=== PATIENT | female | born 1950 | race Caucasian/White ===

== ENCOUNTER 2022-07-04 01:00 | Emergency (ER) | payer MEDICARE, MEDICAID, SELFPAY ==
--- NOTE | ~2022-07-04 | CT_ITS ---
EXAMINATION: CT ABDOMEN AND PELVIS WITHOUT CONTRAST CLINICAL INFORMATION: Pain with hematuria COMPARISON: 06/29/2014 TECHNIQUE: Multidetector volumetric imaging was performed from the superior aspect of the liver through the pubic symphysis. Sagittal and coronal reformatted images were obtained on the technologist's workstation. This CT examination was performed using dose optimization techniques as appropriate, variously including the following: *Automated exposure control *Adjustment of mA and/or kV according to patient size (this includes techniques or standardized protocols for targeted exams where dose is matched to indication/reason for exam; i.e. extremities or head) *Use of iterative reconstruction technique DLP: 562 mGy-cm FINDINGS: LUNG BASES: The visualized lung bases are unremarkable. LIVER, GALLBLADDER, AND BILIARY TREE: The liver is normal in size, shape, and attenuation. No focal hepatic lesion or biliary ductal dilatation is identified. The gallbladder is unremarkable with no evidence of radiopaque gallstones, gallbladder wall thickening, or obvious pericholecystic inflammatory changes. PANCREAS: Unremarkable. SPLEEN: Unremarkable. ADRENAL GLANDS: Unremarkable. KIDNEYS AND URETERS: There is mild right hydronephrosis without obstructing calculus. A few small hypodensities are noted bilaterally favoring cysts; no follow-up recommended. There is cortical scarring of the upper left kidney. Nonspecific mild bilateral perinephric stranding. BLADDER: Partially distended. There is hyperdensity in the posterior bladder dependently measuring 2.2 x 0.9 cm on axial image 68/83. GASTROINTESTINAL TRACT: There is colonic diverticulosis without convincing diverticulitis. No evidence of bowel obstruction. No significant bowel wall thickening is seen. Appendix appears nondilated. Trace pelvic free fluid. No free air is seen. ABDOMINAL WALL: No significant hernia is appreciated. LYMPH NODES: Normal. VASCULAR: There is atherosclerotic calcification along the aorta and iliac arteries. PELVIC VISCERA: Small fibroid noted. OSSEOUS STRUCTURES: Degenerative changes in the spine. There is chronic appearing severe compression deformity of L1 with retropulsion and narrowing of the central canal to approximately 9 mm at this level. Partial compression deformity of L2 is also noted. CT/CT abdomen pelvis wo IV con IMPRESSION: 1. Small amount of hyperdensity in the dependent urinary bladder which may reflect blood products in the setting of hematuria. However, a bladder wall mass cannot be excluded, and further workup with bladder ultrasound is recommended. 2. Mild right hydronephrosis without obstructing calculus. 3. Trace nonspecific pelvic free fluid. 4. Chronic appearing compression deformities of L1 and L2, with moderate narrowing of the central canal at L1.
[2022-07-04 01:07] VITALS: BP 164/86; BP 173/77; PULSE 102; PULSE 106; RESP 20; TEMP 36.6; O2SAT 94; O2SAT 96; BMI 31.2
[2022-07-04 01:14] VITALS: BP 159/74
--- NOTE | 2022-07-04 01:23 | ED_ITS ---
HPI - Female Genitourinary General Chief complaint: Vaginal Bleeding Stated complaint: VAGINAL BLEEDING Time Seen by Provider: 07/04/22 01:23 Source: patient Mode of arrival: ambulatory Limitations: no limitations History of Present Illness HPI Narrative: Patient with hx of hypertension cervical cancer no history of kidney stone came to the ER for dysuria frequency and just prior to arrival having some blood in the urine no fever no chills Related Data Allergies Allergy/AdvReac Type Severity Reaction Status Date / Time No Known Allergies Allergy Unverified 06/08/20 18:21 Review of Systems Review of Systems: Yes all other systems are reviewed and are negative FORMERLY [facility] Social History Social History Advance Directives: No Physical Exam Vital Signs: Vital Signs: Last Vital Signs Temp 97.9 F 07/04/22 01:28 Pulse 71 07/04/22 02:23 Resp 18 07/04/22 02:23 BP 129/76 07/04/22 02:23 Pulse Ox 96 07/04/22 02:23 O2 Del Method 07/04/22 02:23 BMI result Body Mass Index 31.2 Appearance: Alert. Oriented X3. No acute distress. Eyes: PERRLA, No Nystagmus ENT: Pharynx normal. Oral Mucosa moist Neck: Normal inspection. Neck supple. CVS: Normal heart rate and rhythm. Pulses normal. Respiratory: No respiratory distress. Equal air entry bilateral, no wheezing/rales/rhonchi Abdomen: Soft and nontender. Bowel sounds are present, no mass palpable, no CVA tenderness Skin: Skin warm and dry. Normal skin color. Normal skin turgor. Extremities: No lower extremity edema. No calf tenderness Neuro: Oriented X 3. t MDM - Female Genitourinary MDM Narrative Medical decision making narrative: Patient with harsha hematuria with CT scan showing hyperdense showed in bladder possible blood versus mass patient advised to follow with urologist Lab Data Attestation: I reviewed the patient's lab results. Result diagrams: 07/04/22 02:53 07/04/22 02:53 Labs: Lab Results 07/04/22 07/04/22 07/04/22 Range/Units 01:47 02:53 02:53 WBC 8.8 (4.8-10.8) X10*3/uL RBC 3.61 L (4.20-5.50) X10*6/uL Hgb 10.9 L (12.0-16.0) g/dl Hct 31.5 L (37.0-47.0) % MCV 87.3 (80.0-98.0) fL MCH 30.2 (27.0-33.0) pg MCHC 34.6 (31.0-35.0) g/dl RDW 13.0 (11.0-16.0) % Plt Count 283 (160-400) X10*3/uL MPV 8.3 L (9.4-12.3) fL Immature Gran % (Auto) 0.2 (0.0-0.4) % Neut % (Auto) 80.3 H (45-73) % Lymph % (Auto) 12.3 L (20-40) % Bradley % (Auto) 6.1 (2-11) % Eos % (Auto) 0.3 (0-4) % Baso % (Auto) 0.8 (0-2) % Lymph # (Auto) 1.1 L (1.2-4.9) X10*3/uL Bradley # (Auto) 0.5 (0.1-1.2) X10*3/uL Eos # (Auto) 0.0 (0.0-0.4) X10*3/uL Baso # (Auto) 0.1 (0.0-0.2) X10*3/uL Abs Immat Gran (auto) 0.02 (0.00-0.03) X10*3/uL Absolute Neuts (auto) 7.1 (2.0-8.3) x10*3/uL Absolute Nucleated RBC 0.000 (0.0-0.012) X10*3/uL Nucleated RBC % (auto) 0.0 (0.0-0.2) /100WBC PT 11.3 (10.0-13.1) SEC INR 1.0 (0.9-1.1) Sodium (135-145) mmol/L Potassium (3.3-5.1) mmol/L Chloride (96-108) mmol/L Carbon Dioxide (22-29) mmol/L Anion Gap (12-20) BUN (9-16) mg/dL Creatinine (0.5-1.4) mg/dL Estim Creat Clear Calc Estimated GFR Random Glucose (60-115) mg/dL Calcium (8.4-10.2) mg/dL Total Bilirubin (0.0-1.0) mg/dL AST (5-31) U/L ALT (0-31) U/L Alkaline Phosphatase (39-117) U/L Total Protein (6.5-8.0) g/dL Albumin (3.5-5.0) g/dL Urine Color Dark Yellow Urine Appearance Cloudy Urine pH 6.5 (5.0-9.0) Ur Specific [place] 1.015 (1.005-1.025) Urine Protein 100 (2+) H (Neg-Trace) mg/dL Urine Glucose (UA) Negative (Negative) mg/dL Urine Ketones Negative (Negative) mg/dL Urine Blood Large (3+) H (Negative) Urine Nitrite Negative (Negative) Ur Leukocyte Esterase Trace H (Negative) Urine RBC >20 H (0-2) /HPF Urine WBC 0-5 (0-5) /HPF Ur Squamous Epith Cells 0-2 (0-2) /HPF Urine Bacteria None Seen (None Seen) Hyaline Casts 0-2 (0-2) /LPF 07/04/22 Range/Units 02:53 WBC (4.8-10.8) X10*3/uL RBC (4.20-5.50) X10*6/uL Hgb (12.0-16.0) g/dl Hct (37.0-47.0) % MCV (80.0-98.0) fL MCH (27.0-33.0) pg MCHC (31.0-35.0) g/dl RDW (11.0-16.0) % Plt Count (160-400) X10*3/uL MPV (9.4-12.3) fL Immature Gran % (Auto) (0.0-0.4) % Neut % (Auto) (45-73) % Lymph % (Auto) (20-40) % Bradley % (Auto) (2-11) % Eos % (Auto) (0-4) % Baso % (Auto) (0-2) % Lymph # (Auto) (1.2-4.9) X10*3/uL Bradley # (Auto) (0.1-1.2) X10*3/uL Eos # (Auto) (0.0-0.4) X10*3/uL Baso # (Auto) (0.0-0.2) X10*3/uL Abs Immat Gran (auto) (0.00-0.03) X10*3/uL Absolute Neuts (auto) (2.0-8.3) x10*3/uL Absolute Nucleated RBC (0.0-0.012) X10*3/uL Nucleated RBC % (auto) (0.0-0.2) /100WBC PT (10.0-13.1) SEC INR (0.9-1.1) Sodium 136 (135-145) mmol/L Potassium 4.4 (3.3-5.1) mmol/L Chloride 103 (96-108) mmol/L Carbon Dioxide 21 L (22-29) mmol/L Anion Gap 16 (12-20) BUN 19 H (9-16) mg/dL Creatinine 0.82 (0.5-1.4) mg/dL Estim Creat Clear Calc 58.0 Estimated GFR > 60 Random Glucose 146 H (60-115) mg/dL Calcium 9.2 (8.4-10.2) mg/dL Total Bilirubin 0.3 (0.0-1.0) mg/dL AST 18 (5-31) U/L ALT 14 (0-31) U/L Alkaline Phosphatase 64 (39-117) U/L Total Protein 7.9 (6.5-8.0) g/dL Albumin 4.0 (3.5-5.0) g/dL Urine Color Urine Appearance Urine pH (5.0-9.0) Ur Specific [place] (1.005-1.025) Urine Protein (Neg-Trace) mg/dL Urine Glucose (UA) (Negative) mg/dL Urine Ketones (Negative) mg/dL Urine Blood (Negative) Urine Nitrite (Negative) Ur Leukocyte Esterase (Negative) Urine RBC (0-2) /HPF Urine WBC (0-5) /HPF Ur Squamous Epith Cells (0-2) /HPF Urine Bacteria (None Seen) Hyaline Casts (0-2) /LPF Discharge Plan Discharge Clinical Impression: Harsha hematuria Patient Disposition: Home, Self-Care Instructions: Hematuria (ED) Additional Instructions: Drink plenty of fluids Follow-up with urologist you might have a growth inside the bladder which need further evaluate Interventions: ED Discharge Assessment Last Done: 07/04/22 04:26 Discharge Date/Time: 07/04/22 04:27
[2022-07-04 01:28] VITALS: BP 123/61; PULSE 72; RESP 16; TEMP 36.6; O2SAT 98
[2022-07-04 02:02] LABS: Appearance Urine Cloudy; Color Urine Dark Yellow; Glucose Urine UA Negative (Negative); Leukocyte Esterase Urine Trace (Negative); Nitrite Urine Negative (Negative); PH 6.5 (5.0-9.0); Specific Gravity - Urine 1.015 (1.005-1.025); UMIC TRIGGER UACC YES; Urine Blood Large (3+) (Negative); Urine Ketones Negative (Negative); Urine Protein 100 (2+) mg/dL (Neg-Trace)
[2022-07-04 02:10] LABS: Bacteria Urine None Seen (None Seen); Hyaline Casts Urine 0-2 /LPF (0-2); RBC Urine >20 /HPF (0-2); Squamous Epithelial Cell Urine 0-2 /HPF (0-2); WBC Urine 0-5 /HPF (0-5)
[2022-07-04 02:23] VITALS: BP 129/76; PULSE 71; RESP 18; O2SAT 96
[2022-07-04 02:57] LABS: Basophils Absolute Auto 0.1 X10*3/uL (0.0-0.2); Basophils Percent Auto 0.8 % (0-2); Eosinophils Percent Auto 0.3 % (0-4); Hematocrit 31.5 % (37.0-47.0); Hemoglobin 10.9 g/dl (12.0-16.0); Imm Gran Abs Auto 0.02 X10*3/uL (0.00-0.03); Imm Gran Pct Auto 0.2 % (0.0-0.4); Lymphocytes Absolute Auto 1.1 X10*3/uL (1.2-4.9); Lymphocytes Percent Auto 12.3 % (20-40); MANUAL DIFF FLAG NO; Mean Corpuscular HGB Conc 34.6 g/dl (31.0-35.0); Mean Corpuscular Hemoglobin 30.2 pg (27.0-33.0); Mean Corpuscular Volume 87.3 fL (80.0-98.0); Mean Platelet Volume 8.3 fL (9.4-12.3); Monocytes Absolute Auto 0.5 X10*3/uL (0.1-1.2); Monocytes Percent Auto 6.1 % (2-11); Neutrophils Absolute Auto 7.1 x10*3/uL (2.0-8.3); Neutrophils Percent Auto 80.3 % (45-73); Platelet Count 283 X10*3/uL (160-400); Red Blood Count 3.61 X10*6/uL (4.20-5.50); White Blood Count 8.8 X10*3/uL (4.8-10.8)
[2022-07-04 03:03] LABS: Prothrombin Time 11.3 SEC (10.0-13.1)
[2022-07-04 03:16] LABS: Alanine Aminotransferase 14 U/L (0-31); Alkaline Phosphatase 64 U/L (39-117); Anion Gap 16 (12-20); Aspartate Amino Transferase 18 U/L (5-31); Bilirubin Total 0.3 mg/dL (0.0-1.0); Blood Urea Nitrogen 19 mg/dL (9-16); Calcium 9.2 mg/dL (8.4-10.2); Carbon Dioxide 21 mmol/L (22-29); Chloride 103 mmol/L (96-108); Estimated Glomerular Filt Rate > 60; Glucose Random 146 mg/dL (60-115); Potassium 4.4 mmol/L (3.3-5.1); Sodium 136 mmol/L (135-145); Total Protein 7.9 g/dL (6.5-8.0)
== END 2022-07-04 04:27 | disposition home or self-care (01) ==
PROVIDERS: Emergency Provider Internal Medicine; PCP Student in an Organized Health Care Education/Training Program
DX: R31.9 Hematuria, unspecified (principal); R30.0 Dysuria; R35.0 Frequency of micturition; I10 Essential (primary) hypertension; Z85.41 Personal history of malignant neoplasm of cervix uteri
CPT/HCPCS: 36415; 74176; 80053; 81001; 81003; 85025; 85610; 99283; 99284

== ENCOUNTER 2022-07-30 13:49 | Outpatient (REF) | payer MEDICARE, MEDICAID, SELFPAY | END 2022-07-30 13:50 | disposition home or self-care (01) | LOC: HO.HMGCX 13:49 | PROVIDERS: PCP Student in an Organized Health Care Education/Training Program; Visit Provider Student in an Organized Health Care Education/Training Program | DX: Z13.89 Encounter for screening for other disorder (principal) ==

== ENCOUNTER 2022-08-02 09:09 | Outpatient (REF) | payer MEDICARE, MEDICAID, SELFPAY ==
--- NOTE | ~2022-08-02 | US_ITS ---
EXAMINATION: US PELVIS LIMITED (BLADDER) CLINICAL INFORMATION: Gross hematuria. COMPARISON: CT abdomen and pelvis 07/04/2022. Renal ultrasound 04/05/2012 and 03/04/2012. TECHNIQUE: Real-time imaging of the bladder. FINDINGS: BLADDER: Well distended and normal. No mass or wall thickening is appreciated. Abnormal soft tissue seen in the bladder measuring 2.2 x 0.[address] is not appreciated by ultrasound. Bilateral ureteral jets are demonstrated. Prevoid bladder volume is 189 mL. Postvoid bladder volume is 18.7 mL. US/US bladder IMPRESSION: No mass or abnormal wall thickening appreciated by ultrasound.
== END 2022-08-02 09:10 | disposition home or self-care (01) ==
LOC: HO.HMGCX 09:09
PROVIDERS: PCP Student in an Organized Health Care Education/Training Program; Visit Provider Student in an Organized Health Care Education/Training Program
DX: R31.0 Gross hematuria (principal)
CPT/HCPCS: 76857

== ENCOUNTER 2023-01-14 09:03 | Outpatient (REF) | payer MEDICARE, MEDICAID, SELFPAY ==
[2023-01-14 10:09] LABS: Anion Gap 13 (12-20); Blood Urea Nitrogen 17 mg/dL (9-16); Calcium 9.2 mg/dL (8.4-10.2); Carbon Dioxide 26 mmol/L (22-29); Chloride 106 mmol/L (96-108); Estimated Glomerular Filt Rate > 60; Potassium 4.4 mmol/L (3.3-5.1); Sodium 141 mmol/L (135-145)
[2023-01-14 11:29] LABS: Protein/Creatinine Ratio, Ur 0.65 (<0.2); Total Protein Urine Random 199 mg/dL (<12)
== END 2023-01-14 09:04 | disposition home or self-care (01) ==
LOC: HO.LAB 09:03
PROVIDERS: PCP Student in an Organized Health Care Education/Training Program; Visit Provider Internal Medicine Nephrology
DX: I12.9 Hypertensive chronic kidney disease with stage 1 through stage 4 chronic kidney disease, or unspecified chronic kidney disease (principal); N18.2 Chronic kidney disease, stage 2 (mild)
CPT/HCPCS: 36415; 80051; 82310; 82565; 84156; 84520

== ENCOUNTER 2024-01-21 09:09 | Outpatient (REF) | payer MEDICARE, MEDICAID, SELFPAY ==
[2024-01-21 15:04] LABS: Creatinine Urine 223.88 mg/dL; Protein/Creatinine Ratio, Ur 0.19 (<0.2); Total Protein Urine Random 42 mg/dL (<12)
[2024-01-21 15:25] LABS: Anion Gap 13 (12-20); Blood Urea Nitrogen 22 mg/dL (9-16); Carbon Dioxide 23 mmol/L (22-29); Chloride 108 mmol/L (96-108); Estimated Glomerular Filt Rate > 60; Sodium 140 mmol/L (135-145)
[2024-01-21 15:33] LABS: Vitamin D 25-OH Total 47.3 ng/mL (>30)
[2024-01-21 15:35] LABS: Parathyroid Hormone Intact 96.2 pg/mL (8.7-77.1)
== END 2024-01-21 09:10 | disposition home or self-care (01) ==
LOC: HO.CHCLDS 09:09
PROVIDERS: Visit Provider Internal Medicine Nephrology
DX: N18.2 Chronic kidney disease, stage 2 (mild) (principal); I12.9 Hypertensive chronic kidney disease with stage 1 through stage 4 chronic kidney disease, or unspecified chronic kidney disease; R80.8 Other proteinuria
CPT/HCPCS: 36415; 80051; 82306; 82310; 82565; 82570; 83970; 84156; 84520

== ENCOUNTER 2024-02-10 13:28 | Outpatient (REF) | payer MEDICARE, MEDICAID, SELFPAY ==
[2024-02-10 14:41] LABS: Hematocrit 30.5 % (37.0-47.0); Hemoglobin 10.3 g/dl (12.0-16.0); Mean Corpuscular HGB Conc 33.8 g/dl (31.0-35.0); Mean Corpuscular Hemoglobin 29.8 pg (27.0-33.0); Mean Corpuscular Volume 88.2 fL (80.0-98.0); Mean Platelet Volume 8.8 fL (9.4-12.3); Platelet Count 311 X10*3/uL (160-400); Red Blood Count 3.46 X10*6/uL (4.20-5.50); Red Cell Distribution Width 13.3 % (11.0-16.0); White Blood Count 6.7 X10*3/uL (4.8-10.8)
== END 2024-02-10 13:29 | disposition home or self-care (01) ==
LOC: HO.CHCLDS 13:28
PROVIDERS: Visit Provider Internal Medicine Nephrology
DX: D64.9 Anemia, unspecified (principal)
CPT/HCPCS: 36415; 85027

== ENCOUNTER 2024-07-01 09:22 | Outpatient (REF) | payer MEDICARE, MEDICAID, SELFPAY ==
[2024-07-01 14:10] LABS: Hematocrit 30.5 % (37.0-47.0); Hemoglobin 10.2 g/dl (12.0-16.0); Mean Corpuscular HGB Conc 33.4 g/dl (31.0-35.0); Mean Corpuscular Hemoglobin 29.5 pg (27.0-33.0); Mean Corpuscular Volume 88.2 fL (80.0-98.0); Mean Platelet Volume 8.8 fL (9.4-12.3); Platelet Count 280 X10*3/uL (160-400); Red Blood Count 3.46 X10*6/uL (4.20-5.50); Red Cell Distribution Width 13.6 % (11.0-16.0); White Blood Count 4.2 X10*3/uL (4.8-10.8)
[2024-07-01 14:24] LABS: Estimated Average Glucose 108 mg/dL; Hemoglobin A1C 94.2718 umol/L; Hemoglobin A1c % 5.4 % (<6.0); Total Hemoglobin (HGBA1C) 2656.5277 umol/L
[2024-07-01 14:29] LABS: Alanine Aminotransferase 14 U/L (0-31); Albumin Level 3.8 g/dL (3.5-5.0); Alkaline Phosphatase 70 U/L (39-117); Anion Gap 11 (12-20); Aspartate Amino Transferase 16 U/L (5-31); Bilirubin Direct 0.1 mg/dL (0.0-0.5); Bilirubin Total 0.3 mg/dL (0.0-1.0); Blood Urea Nitrogen 19 mg/dL (9-16); Calcium 9.3 mg/dL (8.4-10.2); Carbon Dioxide 26 mmol/L (22-29); Chloride 108 mmol/L (96-108); Cholesterol 215 mg/dL (<200); Estimated Glomerular Filt Rate > 60; Glucose Random 106 mg/dL (60-115); HDL Cholesterol 52 mg/dL (>40); LDL Cholesterol Calculated 134 mg/dL (<100); Sodium 141 mmol/L (135-145); Total Protein 7.5 g/dL (6.5-8.0); Triglycerides 147 mg/dL (<150)
[2024-07-01 14:32] LABS: Creatinine Urine 127.24 mg/dL; Microalbum/Creatinine Ratio Ur 351.3 ug/mg cr (<30)
[2024-07-01 14:38] LABS: Anion Gap 10 (12-20); Blood Urea Nitrogen 18 mg/dL (9-16); Calcium 9.4 mg/dL (8.4-10.2); Carbon Dioxide 27 mmol/L (22-29); Chloride 107 mmol/L (96-108); Estimated Glomerular Filt Rate > 60; Potassium 4.1 mmol/L (3.3-5.1); Sodium 140 mmol/L (135-145)
[2024-07-01 14:43] LABS: Parathyroid Hormone Intact 58.8 pg/mL (8.7-77.1)
[2024-07-01 14:57] LABS: Vitamin D 25-OH Total 54.9 ng/mL (>30)
== END 2024-07-01 09:23 | disposition home or self-care (01) ==
LOC: HO.CHCLDS 09:22
PROVIDERS: Referring Provider Internal Medicine Nephrology; Visit Provider Student in an Organized Health Care Education/Training Program
DX: I12.9 Hypertensive chronic kidney disease with stage 1 through stage 4 chronic kidney disease, or unspecified chronic kidney disease (principal); E11.22 Type 2 diabetes mellitus with diabetic chronic kidney disease; D63.1 Anemia in chronic kidney disease; R80.8 Other proteinuria; N18.2 Chronic kidney disease, stage 2 (mild); E21.1 Secondary hyperparathyroidism, not elsewhere classified
CPT/HCPCS: 36415; 80048; 80051; 80061; 80076; 82043; 82306; 82310; 82565; 82570; 83036; 83970; 84520; 85027

== ENCOUNTER 2024-11-22 09:29 | Outpatient (REF) | payer MEDICARE, MEDICAID, SELFPAY ==
--- OUTSIDE RECORDS SUMMARY | 2024-11-22 10:30 | XMS_ITS | Encounter Summary ---
Author Organization [employer] Address [address] [facility] 7[address] [place] [address] Care Team Providers Care Carpenter General Name Role Phone Elsa Carr MD Primary Care Provider [phone] Reason for Visit * Reason Comments Med Refill Encounter Details Date Type Department Care Team ([facility] st Contact Info) Description 10/26/2024 Refill [facility] MEDICINE [address] [place] [address] Elsa Carr MD [address] [place] [address] Social History Tobacco Use Types Packs/Day Years Used Date Smoking Tobacco: Former Cigarettes Smokeless Tobacco: Current Alcohol Use Standard Drinks/Week Comments Defer 0 (1 standard drink = 0.6 oz pur e alcohol) Depression Answer Date Recorded Patient Health Questionnaire-9 Score 2 06/04/2024 Patient Health Questionnaire-9 Score 2 06/04/2024 Last PHQ-9: Questionnaire Data Not on file 0 06/04/2024 Housing Stability Answer Date Recorded What is your housing situation today? Not on maricruz e 10/14/[address] you li ve. Do you have problems with any of the following? None of the above 10/14/2024 Food Insecurity Answer Date Recorded Within the past 12 months, y ou worried that your food would run out before you got money to buy more: Never True 10/14/2024 Within the past 12 months,th e food you bought just didn't last and you didn't have enough money to get more: Never True Transportation Answer Date Recorded In the past 12 months, has l ack of transportation kept you from medical appts, meetings, work or from getting things needed for daily living? No 10/14/2024 Utilities Answer Date Recorded In the past 12 months, has t he electric, gas, oil or water company threatened to shut off services in your home? No 10/14/2024 Depression Answer Date Recorded Patient Health Questionnaire-2 Score 0 06/04/2024 Internet Access Answer Date Recorded Internet Access Q1 I am not sure 10/14/2024 Internet Access Q2 Not on file 10/14/2024 Comments No Sex and Gender Information Value Date Recorded Sex Assigned at Female 07/22/2022 10:22 AM EDT Legal Sex Female 10:22 AM EDT Gender Identity Choose not to disclose 10:22 AM EDT Sexual Orientation Choose not to disclose 2021 10:22 AM EDT documented as of this encounter Plan of Treatment Not on file documented as of this encounter Visit Diagnoses Not on filedocumented in this encounter Additional Health Concerns Assessment Noted Time PHQ-9 Depression Total Score: 2 06/04/20 24 11:09 AM EDT documented as of this encounter Care Teams Carpenter General Relationship Specialty Start Date End Date Elsa Carr MD [address] [place] [address] PCP - General Family Medicine 08/26/12 documented as of this encounter
--- OUTSIDE RECORDS SUMMARY | 2024-11-22 10:30 | XMS_ITS | Clinical Summary ---
Author Organization [facility] Address [address] [facility] [address] [place] [address] Phone Care Team Providers Care Outboard Motor Tester Name Role Phone Elsa Carr MD Primary Care Provider [phone] Allergies No known active allergies Medications amLODIPine (NORVASC) 10 MG tablet Take 10 mg by mouth 1 (one) time each day Active aspirin (ST JYOTSNA) 81 MG EC tablet Take 81 mg by mouth 1 (one) time each day Active Blood Glucose Monitoring Suppl ([employer] Blood Glucose Meter) w/Device kit Active calcium carbonate 1500 (600 Ca) MG tablet Take 1,500 mg by mouth in the morning and 1,500 mg in the evening. Take with meals. Active cetirizine (ZyrTEC) 10 MG tablet Take 10 mg by mouth 1 (one) time each day Active glucose blood test strip 1 each by Other route if needed Use as instructed Active multivitamin (THERAGRAN) tablet Take 1 tablet by mouth 1 (one) time each day Active omeprazole (PriLOSEC) [address] capsule Take 20 mg by mouth 1 (one) time each day Do not crush or chew. Active pravastatin (PRAVACHOL) 20 MG tablet Take 20 mg by mouth 1 (one) time each day Active labetalol (NORMODYNE) 100 MG tablet Take 50 mg by mouth 1 (one) time each day Active lisinopril (PRINIVIL,ZESTR IL) 30 MG tablet Take 1 tablet (30 mg total) by mouth 1 (one) time each day 90 tablet 3 4 Active Active Problems Problem Noted Date Diagnosed Date Anemia in chronic kidney disease 02/01/2024 Secondary hyperparathyroidism 02/01/2024 Proteinuria 01/20/2023 Essential (primary) hypertension 07/22/2022 Hypercholesterolemia 07/22/2022 Allergic rhinitis 07/22/2022 Chronic kidney disease, stage 2 (mild) 2 Hypertensive chronic kidney disease 07/22/2022 Family History Medical History Relation Comments Diabetes Brother Heart disease Brother Hypertension Brother Cancer Sister Diabetes Sister Hypertension Sister Relation Status Comments Brother Sister Social History Tobacco Use Types Packs/Day Years Used Date Smoking Tobacco: Former Cigarettes Smokeless Tobacco: Former Alcohol Use Standard Drinks/Week Comments Never 0 (1 standard drink = 0.6 oz pur e alcohol) Comments Unknown Sex and Gender Information Value Date Recorded Sex Assigned at Not on file Legal Sex Female 5:21 PM EST Gender Identity Not on file Sexual Orientation Not on file Last Filed Vital Signs Vital Sign Reading Time Taken Comments Blood Pressure 130/60 01/26/2024 2:08 PM EDT Pulse 70 01/26/2024 1:43 PM EDT Temperature - - Respiratory Rate - - Oxygen Saturation - - Inhaled Oxygen Concentration - - Weight 76.7 kg (169 lb) 01/26/2024 1:43 PM EDT Height - - Body Mass Index - - Plan of Treatment Upcoming Encounters Date Type Department Care Team (Late st Contact Info) Description 01/24/2025 1:00 PM EDT Office Visit [facility] [address] [id number] Estefany Flynn ARNP [address] [phone] Health Maintenance Due Date Last Done Comments Influenza Vaccine (#1) 2024 2, 10/26/2019, 06/19/2018, Additional history exists Pneumococcal Vaccine: 65+ Years Completed 06/01/2019, 07/30/2017, 03/20/2012 Hepatitis B Vaccine Aged Out No longe r eligible based on patient's age to complete this topic Insurance [place] Subscriber Plan / Payer (Ef fective 2022-Present) Name:Meghna Acevedo Relation to Subscriber:Self Name:Meghna Acevedo Payer ID:Not on file Group ID:Not on file Type:Not on file Address: [place] [id number] MEDICARE [place]ID [place] Member Subscriber Plan / Payer (Ef fective 2022-Present) Name:Meghna Acevedo Relation to Subscriber:Self Name:Meghna Acevedo Payer ID:Not on file Group ID:Not on file Type:Not on file Address: [place] [id number] MEDICARE Care Teams Outboard Motor Tester Relationship Specialty Start Date End Date Elsa Carr MD [address] [place] [id number] PCP - General Family Medicine 03/18/22
--- OUTSIDE RECORDS SUMMARY | 2024-11-22 10:30 | XMS_ITS | Encounter Summary ---
Author Organization [employer] Address [address] [facility] 7[address] [place] [address] Care Team Providers Care Physician Surgeon Name Role Phone Elsa Carr MD Primary Care Provider [phone] Reason for Visit * Reason Onset Date Comments Med Refill 10/29/2024 Encounter Details Date Type Department Care Team ([facility] st Contact Info) Description 10/29/2024 Refill [facility] MEDICINE [address] [place] [address] Elsa Carr MD [address] [place] [address] Social History Tobacco Use Types Packs/Day Years [...] AM EDT documented as of this encounter Miscellaneous Notes * Telephone Encounter - Blaine Elizondo - 10/29/2024 9:43 AM EST Tc from pt requesting medication satus on amLODIPine (Norvasc) 10 MG tablet documented in this encounter Plan of Treatment Not on file documented as of this encounter Visit Diagnoses Not on filedocumented in this encounter Additional Health Concerns Assessment Noted Time PHQ-9 Depression Total Score: 2 06/04/20 24 11:09 AM EDT documented as of this encounter Care Teams Physician Surgeon Relationship Specialty Start Date End Date Elsa Carr MD [address] [place] [id number] PCP - General Family Medicine 08/26/12 documented as of this encounter
--- OUTSIDE RECORDS SUMMARY | 2024-11-22 10:30 | XMS_ITS | Encounter Summary ---
Author Organization [employer] Address [address] [facility] 7[address] [place] [address] Care Team Providers Care Health Nurse Name Role Phone Elsa Carr MD Primary Care Provider [phone] Reason for Visit * Reason Onset Date Comments Received Call 08/12/2024 Encounter Details Date Type Department Care Team ([facility] Contact Info) Description 08/12/2024 Telephone [facility] MEDICINE [address] [place] [address] Elsa Carr MD [address] [place] [address] Received Call Social History Tobacco Use Types Packs/Day Years [...] Recorded What is your housing situation today? I have shyann evans 07/26/[address] you li ve. Do you have problems with any of the following? None of the above 07/26/2023 Food Insecurity Answer Date Recorded Within the past 12 months, y ou worried that your food would run out before you got money to buy more: Never True 07/26/2023 Within the past 12 months,th e food you bought just didn't last and you didn't have enough money to get more: Never True 12/2022 Transportation Answer Date Recorded In the past 12 months, has l ack of transportation kept you from medical appts, meetings, work or from getting things needed for daily living? No 07/26/2023 Utilities Answer Date Recorded In the past 12 months, has t he electric, gas, oil or water company threatened to shut off services in your home? No 07/26/2023 Depression Answer Date Recorded Patient Health Questionnaire-2 Score 0 06/04/2024 Comments No Sex and Gender Information Value Date Recorded Sex Assigned at Female 07/22/2022 10:22 AM EDT Legal Sex Female 10:22 AM EDT Gender Identity Choose not to disclose 10:22 AM EDT Sexual Orientation Choose not to disclose 2021 10:22 AM EDT documented as of this encounter Miscellaneous Notes * Telephone Encounter - Carlinsam Fischer - 08/12/2024 12:21 PM EST Tc from pt stating she received a call but technical document writer saw no documentation, will leave message as an FYI. documented in this encounter Plan of Treatment Not on file documented as of this encounter Visit Diagnoses Not on filedocumented in this encounter Additional Health Concerns Assessment Noted Time PHQ-9 Depression Total Score: 2 06/04/20 24 11:09 AM EDT documented as of this encounter Care Teams Health Nurse Relationship Specialty Start Date End Date Elsa Carr MD [address] [place] [address] PCP - General Family Medicine 08/26/12 documented as of this encounter
--- OUTSIDE RECORDS SUMMARY | 2024-11-22 10:30 | XMS_ITS | Encounter Summary ---
Author Organization [employer] Address [address] [facility] 7[address] [place] [address] Care Team Providers Care Gang Saw Operator Name Role Phone Elsa Carr MD Primary Care Provider [phone] Reason for Visit * Reason Onset Date Comments Nurse Triage 11/02/2024 Encounter Details Date Type Department Care Team ([facility] Contact Info) Description 11/02/2024 Telephone [facility] MEDICINE [address] [place] [address] Elsa Carr MD [address] [place] [address] Nurse Triage Social History Tobacco Use Types Packs/Day Years [...] encounter Miscellaneous Notes * Telephone Encounter - Emilie Varma RN - 11/02/2024 2:27 PM EST Call returned to Meghna Acevedo to triage below. Reports having left leg spasms since Friday. Pt using OTC tylenol, icy hot and using heating pad. Pt denies any swelling, redness, rash or bruising. Per pt having to use walker to avoid full weight on leg. Pain with lifting. Pt endorses having lowerback pain that is chronic. Pt denies any injury or fall to cause pain. Pt denies dragging foot or inability to ambulate. Pt denies any RAINEY,dizziness, difficulty with speech or left arm or face numbness. Per pt this is similar to sx patient had right after had stroke, states was given muscle relaxer to help. Pt states has had mild cramping in past but never that lasted this long. Pt offered appt today with team provider. Pt states already has difficulty with stairs on a regular basis now with these sx afraid of falls. Pt wants message to be sent to PCP to review if willing to send in muscle relaxer again. Pt advised will forward notefor PCP review, pt advised PCP on admin this PM and not in office for clinic until tomorrow morning. If sx worsen, difficulty walking or severe pain to call EMS immediately for transport. Pt agrees. Pt alert and oriented x 3, speaking in clear full sentences. Protocol Used: Neurologic Deficit (Adult) Protocol-Based Disposition: Go to Office or Video Visit Now Override (Final) Disposition: Discuss with PCP and Callback by Nurse Override Reason: Caller refused suggested disposition Positive Triage Question: * Tingling (e.g., pins and needles) of the face, arm or leg on one side of the body, that is present now (Exceptions: Chronic or recurrent symptom lasting > 4 weeks; or from known cause, such as: bumped elbow, carpal tunnel, pinched nerve.) * All higher-acuity triage questions were negative * Telephone Encounter - Stephan Patterson - 11/02/2024 1:32 PM EST Tc from pt stating that they are having muscle cramps on left leg. Pt states that they have been taking tylenol for pain relief but tylenol is not working and is requesting that PCP prescribes pt with something else for pain relief. Pt has a history of having a stroke in 2011. Glass Artist convinced pt to speak to triage nurse. Pt having issues with coming to office since she lives on [address] * Telephone Encounter - Carrillo Londono - 11/02/2024 8:52 AM EST Tc from pt stating that they are having muscle cramps on left leg. Pt states that they have been taking tylenol for pain relief but tylenol is not working and is requesting that PCP prescribes pt with something else for pain relief. Pt has a history of having a stroke in 2011. Pt denies to be triage.... documented in this encounter Plan of Treatment Not on file documented as of this encounter Visit Diagnoses Not on filedocumented in this encounter Additional Health Concerns Assessment Noted Time PHQ-9 Depression Total Score: 2 06/04/20 24 11:09 AM EDT documented as of this encounter Care Teams Gang Saw Operator Relationship Specialty Start Date End Date Elsa Carr MD [address] [place] [id number] PCP - General Family Medicine 08/26/12 documented as of this encounter
--- OUTSIDE RECORDS SUMMARY | 2024-11-22 10:30 | XMS_ITS | Clinical Summary ---
Author Organization [employer] Address [address] [facility] [address] [place] [address] Care Team Providers Care Cigar Wrapper Name Role Phone Elsa Carr MD Primary Care Provider [phone] Allergies No known active allergies Medications aspirin 81 MG EC tablet Take 81 mg by mouth. 12/19/19 13 Active lisinopril 30 MG tablet 01/21/20 23 Active pravastatin (Pravachol) 20 MG tablet TAKE 1 TABLET(20 MG) BY MOUTH IN THE MORNING 90 tablet 3 12/08/19 24 Active cetirizine (ZyrTEC) 10 MG tabletIndicati ons:Allergy, sequela TAKE 1 TABLET BY MOUTH EVERY MORNING 90 tablet 3 06/10/20 24 Active omeprazole (PriLOSEC) [address] capsule TAKE 1 CAPSULE BY MOUTH EVERY MORNING 90 capsule 3 09/13/20 24 Active labetalol (Normodyne) 100 MG tablet TAKE 1/2 TABLET BY MOUTH TWICE DAILY 90 tablet 3 10/14/19 25 Active amLODIPine (Norvasc) 10 MG tablet Take 1 tablet (10 mg) by mouth Once per day. 90 tablet 11 10/29/19 25 Active amLODIPine (Norvasc) 10 MG tablet TAKE 1 TABLET BY MOUTH EVERY DAY 90 tablet 11 07/28/20 23 025 Discontinued(Re order (will not trigger notification to Pharmacy)) Active Problems Problem Noted Date Diagnosed Date Chronic kidney disease, stage 2 (mild) 2 Essential hypertension 03/10/2012 Hypercholesterolemia 03/10/2012 Encounters Date Type Department Care Team Description 11/02/2024 Telephone [facility] [address] [place] [address] [phone] Elsa Carr MD Nurse Triage 10/29/2024 Refill [facility] [address] [facility] [place], [place] [phone] Elsa Carr MD 10/26/2024 Refill [facility] [address] [facility] [place], [place] [phone] Elsa Carr MD 10/14/2024 11:15 AM EST Telemedicine [facility] [address] [place], [place] [phone] Elsa Carr MD Essential hypertension (Primary Dx); Hypercholesterolemia; Diabetes mellitus type 2, diet-controlled ([facility]) 10/14/2024 Travel 09/11/2024 Refill [facility] [address] [place], [place] [phone] Elsa Carr MD from Last 3 Months Immunizations Name Administration Dates Next Due Influenza High-dose Quadrivalent Preservative Fr ee 09/02/2022 Influenza Quadrivalent Adjuvanted 11/13/2021 Influenza injectable quadriv alent IIV4 with preservative 06/19/2018,07/30/2017 Influenza, High Dose Seasonal, Preservative Free 10/26/2019 Influenza, Split (incl. purified surface antigen ) 06/17/2013,05/27/2012 Pneumococcal Conjugate PCV 13 06/01/2019 Pneumococcal Polysaccharide PPSV23 07/30/2017, Tdap 06/04/2024,03/20/2012 Zoster, live 06/19/2018 Social History Tobacco Use Types Packs/Day Years Used Date Smoking Tobacco: Former Cigarettes Smokeless Tobacco: Current Tobacco Cessation:Ready to Q uit: Not Asked; Counseling Given: Not Answered Alcohol Use Standard Drinks/Week Comments Defer 0 [...] not to disclose 2021 10:22 AM EDT Last Filed Vital Signs Vital Sign Reading Time Taken Comments Blood Pressure 151/76 06/04/2024 11:07 AM EDT Pulse 84 06/04/2024 11:07 AM EDT Temperature 36.7 ??C (98.1 ??F) 06/04/2024 11:07 AM E DT Respiratory Rate 20 06/04/2024 11:07 AM EDT Oxygen Saturation 98% 06/04/2024 11:07 AM EDT Inhaled Oxygen Concentration - - Weight 74.8 kg (165 lb) 06/04/2024 11:07 AM EDT Height 154.9 cm (5' 1 ) 06/04/2024 11:07 AM EDT Body Mass Index 31.18 06/04/2024 11:07 AM EDT Plan of Treatment Health Maintenance Due Date Last Done Comments Diabetes: Foot Exam 1958 Eye Exam 1958 Hepatitis C Screening 1966 Zoster Vaccines (2 of 3) 08/14/2018 06/19/2018 RSV Patients and Patients Aged 60 years or older (1 - 1-dose 75+ series) 2023 SDOH Screening 03/11/2024 03/11/2023 COVID-19 Vaccine ( season) 2024 01/09/2022, 07/16/2021, 06/25/2021 Diabetes: Hemoglobin A1C 10/01/2024 024, 03/11/2023, 03/06/2022, Additional history exists Depression Screening 06/04/2025 06/04/2024, 06/04/20 Tobacco Screening 06/04/2025 06/04/2024 Diabetes: Urine Protein Screening 07/01/2025 07/01/2024, 07/01/2024, 01/14/2023, Additional history exists Lipid Panel 07/01/2025 07/01/2024, 02/21, 03/06/2022, Additional history exists Alcohol/Substance Use Screening 10/14/2025 10/14/2024 DTaP/Tdap/Td Vaccines (3 - Td or Tdap) 06/04/2034 06/04/2024, 03/20/2012 Pneumococcal Vaccine: 50+ Years Completed 06/01/2019, 07/30/2017, 03/20/2012 Influenza Vaccine Completed 07/15/2024, , 09/02/2022, Additional history exists HIB Vaccines Aged Out No longer eligi ble based on patient's age to complete this topic HPV Vaccines Aged Out No longer eligi ble based on patient's age to complete this topic Hepatitis A Vaccines Aged Out No long er eligible based on patient's age to complete this topic Hepatitis B Vaccines Aged Out No long er eligible based on patient's age to complete this topic IPV Vaccines Aged Out No longer eligi ble based on patient's age to complete this topic Meningococcal Vaccine Aged Out No yogi pam eligible based on patient's age to complete this topic RSV under 20 months Aged Out No longe r eligible based on patient's age to complete this topic Rotavirus Vaccines Aged Out No longer eligible based on patient's age to complete this topic Procedures Procedure Name Priority Date/Time Associated Diagnosis Comments ALBUMIN, RANDOM URINE W/CREATININE Routine 07/01/2024 9:40 AM EDT HEMOGLOBIN A1C Routine 07/01/2024 9:30 AM EDT Diabetes mellitus type 2, diet-controlled ([facility]) LIPID PANEL, STANDARD Routine 07/01/2024 9:30 AM EDT Essential hypertension Diabetes mellitus type 2, diet-controlled ([facility]) from Last 3 Months or Most Recently Relevant to Health Maintenance Results * (ABNORMAL) Albumin, Random Urine W/Creatinine (07/01/2024 9:40 AM EDT) Creatinine, Urine 127.24 mg/dL [facility] Microalbumin Urine 447.0 mg/L [facility] Microalbum Creatinine Ratio Ur 351.3(H) <30 ug/mg cr [facility] Comment:Albumin/Creatinine R atio Reference Ranges: Normal: < 30 ug/mg creatinine Microalbuminuria: 30 - 300 ug/mg creatinineClinical Albuminuria: > 300 ug/mg creatinine 07/01/2024 9:40 AM EDT 07/01/2024 1:58 PM EDT us Generic External Data Provider LAB URINE ORDERAB LES Final Result Performing Organization Address City/State/[facility] Co de Phone Number [facility] [address] [place] [phone] * Hemoglobin A1c (07/01/2024 9:30 AM EDT) Hemoglobin A1c 5.4 <6.0 % [facility] Comment:Hemoglobin A1C Refer ence Range Adults: 4.8 - 6.0 % Non diabetic: < 6.0 % Goal: < 7.0 %Additional Action Suggested: > 8.0 %Note: Hemoglobin A1c results are invalid for patients with abnormal amounts of HbF. Blood transfusions may impact the HbA1c concentration in the patient sample. Estimated Average Glucose 108 mg/dL [facility] Comment:eAG = Estimated ave rage glucose which is %A1C expressed asaverage glucose, using the formula of the [id number] Glucose study (ADAG), Diabetes Care, Vol.31,#8,2007 Blood Venous blood specimen / Unknown 07/01/2024 9:30 AM EDT 07/01/2024 2:02 PM EDT Elsa Carr MD LAB BLOOD ORDERABLES Final Resul t Performing Organization Address [facility] Co de Phone Number [facility] [address] [place] [phone] * (ABNORMAL) Lipid Panel, Standard (07/01/2024 9:30 AM EDT) Triglycerides 147 <150 mg/dL [facility] Comment:Desirable Triglyceri de: less than 150 mg/dLBorderline High Triglyceride 150-199 mg/dLHigh Triglyceride: 200-499 mg/dLVery High Triglyceride: greater than or equal to 5OO mg/dL Cholesterol 215(H) <200 mg/dL [facility] Comment:Desirable Cholestero l: less than 200 mg/dLBorderline High Cholesterol: 200-239 mg/dLHigh Cholesterol: greater than 239 mg/dL LDL Cholesterol Calculated 134(H) <100 mg/dL [facility] Comment:Desirable LDL: less than 100 mg/dLNear Optimal/Above Optimal LDL: 110- 129 mg/dLBorderline High LDL: 130-159 mg/dLHigh LDL: 160-189 mg/dLVery High LDL: greater than or equal to 190 mg/dL HDL Cholesterol 52 >40 mg/dL [facility] Comment:Desirable HDL: great er than 40 mg/dL Note: This HDL assay may give artificially low results in patients with liver disease. Blood Venous blood specimen / Unknown 07/01/2024 9:30 AM EDT 07/01/2024 2:02 PM EDT Elsa Carr MD LAB BLOOD ORDERABLES Final Resul t Performing Organization Address [facility]/ZIP Co de Phone Number [facility] [address] [place] [address] [phone] from Last 3 Months or Most Recently Relevant to Health Maintenance Insurance [place], [place] [phone] [facility] STANDARD Care Teams Cigar Wrapper Relationship Specialty Start Date End Date Elsa Carr MD [address] [place] [phone] PCP - General Family Medicine 08/26/12
--- OUTSIDE RECORDS SUMMARY | 2024-11-22 10:30 | XMS_ITS | Encounter Summary ---
Author Organization [facility], Address [address] [facility] [address] [place] [address] Phone Care Team Providers Care Marshmallow Machine Worker Name Role Phone Elsa Carr MD Primary Care Provider Encounter Details Date Type Department Care Team (Late st Contact Info) Description 04/18/2022 Documentation Only [facility], [address] [place] [phone] Elsa Carr MD [address] [place], [place] [phone] Social History Tobacco Use Types Packs/Day Years Used Date Smoking Tobacco: Never Assessed Comments Unknown Sex and Gender Information Value Date Recorded Sex Assigned at Not on file Legal Sex Female 5:21 PM EST Gender Identity Not on file Sexual Orientation Not on file documented as of this encounter Plan of Treatment Upcoming Encounters Date Type Department Care Team (Late st Contact Info) Description 01/24/2025 1:00 PM EDT [facility] [address] [phone] Estefany Flynn ARNP [address] [phone] documented as of this encounter Visit Diagnoses Not on filedocumented in this encounter Care Teams Marshmallow Machine Worker Relationship Specialty Start Date End Date Elsa Carr MD [address] [place] [phone] PCP - General Family Medicine 03/18/22 documented as of this encounter
[2024-11-22 14:38] LABS: Alanine Aminotransferase 14 U/L (0-31); Albumin Level 3.6 g/dL (3.5-5.0); Alkaline Phosphatase 62 U/L (39-117); Anion Gap 12 (12-20); Aspartate Amino Transferase 24 U/L (5-31); Bilirubin Direct 0.1 mg/dL (0.0-0.5); Bilirubin Total 0.3 mg/dL (0.0-1.0); Blood Urea Nitrogen 18 mg/dL (9-16); Calcium 9.1 mg/dL (8.4-10.2); Carbon Dioxide 24 mmol/L (22-29); Chloride 108 mmol/L (96-108); Cholesterol 190 mg/dL (<200); Estimated Glomerular Filt Rate > 60; Glucose Random 129 mg/dL (60-115); HDL Cholesterol 50 mg/dL (>40); LDL Cholesterol Calculated 111 mg/dL (<100); Potassium 4.1 mmol/L (3.3-5.1); Sodium 140 mmol/L (135-145); Total Protein 7.8 g/dL (6.5-8.0); Triglycerides 148 mg/dL (<150)
[2024-11-22 14:40] LABS: Estimated Average Glucose 108 mg/dL; Hemoglobin A1C 99.4524 umol/L; Hemoglobin A1c % 5.4 % (<6.0)
== END 2024-11-22 09:30 | disposition home or self-care (01) ==
LOC: HO.CHCLDS 09:29
PROVIDERS: Visit Provider Student in an Organized Health Care Education/Training Program
DX: I10 Essential (primary) hypertension (principal); E78.00 Pure hypercholesterolemia, unspecified; E11.9 Type 2 diabetes mellitus without complications
CPT/HCPCS: 36415; 80048; 80061; 80076; 83036

== ENCOUNTER 2025-02-15 11:17 | Outpatient (REF) | payer MEDICARE, MEDICAID, SELFPAY ==
[2025-02-15 11:27] LABS: MANUAL DIFF FLAG NO
--- OUTSIDE RECORDS SUMMARY | 2025-02-15 12:06 | XMS_ITS | Encounter Summary ---
Author Organization [employer] Address [address] [facility] [address] [place] [address] Care Team Providers Care Accounts Receivable Representative Name Role Phone Elsa Carr MD Primary Care Provider [phone] Reason for Visit * Reason Onset Date Comments Nurse Triage 11/02/2024 Encounter Details Date Type Department Care Team ([facility] st Contact Info) Description 11/02/2024 Telephone [facility] [address] [place] [phone] Elsa Carr MD [address] [place] [address] Nurse Triage Social History Tobacco Use Types [...] history of having a stroke in 2011. Biomass Plant Manager convinced pt to speak to triage nurse. [...] documented as of this encounter Care Teams Accounts Receivable Representative Relationship Specialty Start Date End Date Elsa Carr MD [address] [place] [phone] PCP - General Family Medicine 08/26/12 documented as of this encounter
[2025-02-15 14:37] LABS: Basophils Absolute Auto 0.1 X10*3/uL (0.0-0.2); Basophils Percent Auto 0.9 % (0-2); Eosinophils Absolute Auto 0.1 X10*3/uL (0.0-0.4); Eosinophils Percent Auto 2.2 % (0-4); Hematocrit 30.2 % (37.0-47.0); Hemoglobin 9.9 g/dl (12.0-16.0); Imm Gran Abs Auto 0.02 X10*3/uL (0.00-0.03); Imm Gran Pct Auto 0.3 % (0.0-0.4); Lymphocytes Absolute Auto 1.4 X10*3/uL (1.2-4.9); Mean Corpuscular HGB Conc 32.8 g/dl (31.0-35.0); Mean Corpuscular Hemoglobin 28.5 pg (27.0-33.0); Mean Platelet Volume 8.8 fL (9.4-12.3); Monocytes Absolute Auto 0.6 X10*3/uL (0.1-1.2); Monocytes Percent Auto 8.7 % (2-11); Neutrophils Absolute Auto 4.2 x10*3/uL (2.0-8.3); Neutrophils Percent Auto 65.9 % (45-73); Platelet Count 315 X10*3/uL (160-400); Red Blood Count 3.47 X10*6/uL (4.20-5.50); Red Cell Distribution Width 14.1 % (11.0-16.0); White Blood Count 6.4 X10*3/uL (4.8-10.8)
[2025-02-15 15:03] LABS: Creatinine Urine 64.43 mg/dL
[2025-02-15 15:10] LABS: Parathyroid Hormone Intact 65.4 pg/mL (8.7-77.1)
[2025-02-15 15:11] LABS: Vitamin D 25-OH Total 67.5 ng/mL (>30)
[2025-02-16 07:08] LABS: Anion Gap 14 (12-20); Blood Urea Nitrogen 16 mg/dL (9-16); Calcium 9.2 mg/dL (8.4-10.2); Carbon Dioxide 24 mmol/L (22-29); Chloride 104 mmol/L (96-108); Estimated Glomerular Filt Rate > 60; Phosphorus 3.1 mg/dL (2.7-4.5); Potassium 4.7 mmol/L (3.3-5.1); Sodium 137 mmol/L (135-145)
== END 2025-02-15 11:18 | disposition home or self-care (01) ==
LOC: HO.CHCLDS 11:17
PROVIDERS: Visit Provider Internal Medicine Nephrology
DX: Z13.89 Encounter for screening for other disorder (principal)
CPT/HCPCS: 36415; 80051; 82306; 82310; 82565; 82570; 83970; 84100; 84520; 85025